=== PATIENT | female | born 1980 | race Asian ===

== ENCOUNTER 2018-10-18 09:40 | Emergency (ER) | payer BC ==
[~2018-10-18] VITALS: Ht 154.9 cm; Wt 72.6 kg
[2018-10-18] MEDS ORDERED: CLONIDINE HCL 0.2 MG TAB PO NR (10:30)
[2018-10-18] MEDS ORDERED: CLONIDINE HCL 0.1 MG TAB ONE (10:36)
[2018-10-18] MEDS ORDERED: HYDRALAZINE HCL 20 MG/ML VIAL IV ONE (12:00)
[2018-10-18] MEDS ORDERED: HYDRALAZINE HCL 20 MG/ML VIAL ONE (12:09)
== END 2018-10-18 12:45 | disposition home or self-care (01) ==
LOC: FSED 09:40
DX: I16.0 Hypertensive urgency (principal); I10 Essential (primary) hypertension
CPT/HCPCS: 99282; J0360